=== PATIENT | male | born 1995 | race Caucasian/White ===

== ENCOUNTER 2024-06-03 07:59 | Emergency (ER) | payer SELFPAY ==
[2024-06-03] MEDS: Lidocaine 1% 10 ML MDV INJECT ONE (08:33)
[2024-06-03] MEDS: Diphtheria,Pertussis(Acell),Tetanus Vaccine 0.5 ML Syringe IM ONE (08:33)
[2024-06-03] MEDS: Bacitracin Oint 1 GM U/D Packet TOP ONE (08:55)
== END 2024-06-03 09:01 | disposition home or self-care (01) ==
LOC: JP.ED 07:59
DX: S61.412A Laceration without foreign body of left hand, initial encounter (principal); Z88.0 Allergy status to penicillin; Z23 Encounter for immunization; W27.8XXA Contact with other nonpowered hand tool, initial encounter
CPT/HCPCS: 90471; 90715; 99282